=== PATIENT | male | born 1990 | race Caucasian/White ===

== ENCOUNTER 2024-03-15 09:16 | Emergency (ER) | payer SELFPAY ==
[2024-03-15 09:18] VITALS: BP 136/92
[2024-03-15 10:23] VITALS: BMI 29.0
--- NOTE | 2024-03-15 10:34 | ED.GENMED ---
History of Present Illness
General
Chief Complaint: Eye Problems
Source: patient
Exam Limitations: none
Time Seen by Provider: 03/15/24 10:14
Nursing documentation reviewed up to this point in time: agreed with
History of Present Illness
History of Present Illness:
pt is a 33 y/o M
no pmh
yesterday had some itchiness to his R eye and did rub it a few times
woke up today with pain, swleling, redness to upper eyelid
no vision changes
no fever
able to look around without pain or difficulty
says it was mroe swollen initially but now is better
nothing applied
never had a stye
no glasses or contacts
no fever
Past History
Past History
ED Past Medical History: None
ED Past Surgical History: None
Social History
Tobacco: Non-smoker
Alcohol: None
Review of Systems
Review of Systems
Allergies reviewed?: Yes
All Other Systems: Not applicable
Phy Exam
Physical Exam
Physical Exam:
GENERAL: Alert , in no apparent distress
EYE: pupils equal and reactive
Mild to moderate upper eyelid swelling on the right with erythema, there is a tiny stye within the right upper eyelid, minimal tenderness, normal EOMs, vision normal, conjunctive a clear
Left eyes clear, normal eyelids
NEUROLOGICAL: Alert and oriented, no focal neuro deficits
SKIN: Warm and dry, skin intact. Erythema right upper eyelid
MUSCULOSKELETAL: No edema, well perfused.
PSYCH: Normal and appropriate interaction.
Course
Vital Signs
Initial and Last Documented VS:
Initial Vital Signs
Temp Pulse Resp BP Pulse Ox
36.4 C 83 20 136/92 98
03/15/24 09:18 03/15/24 09:18 03/15/24 09:18 03/15/24 09:18 03/15/24 09:18
Last Documented Vital Signs
Temp Pulse Resp BP Pulse Ox
36.4 C 83 20 136/92 98
03/15/24 09:18 03/15/24 09:18 03/15/24 09:18 03/15/24 09:18 03/15/24 09:18
MDM/Problems Addressed
Differential Diagnosis Includes:
Hordeolum, blepharitis, allergic conjunctivitis, foreign body
MDM/Problems Addressed:
33-year-old healthy male with right upper eyelid swelling with mild discomfort and itchiness. Symptoms started yesterday and got worse this morning. He initially was unable to fully open his eye but now after being awake he is able to. He has no
pain with EOMs and has normal EOMs, no corrective lenses chronically, no fevers or chills or systemic symptoms. On exam he has mild right upper eyelid edema with erythema and a localized hordeolum in the mid upper eyelid with mild tenderness, there
is no conjunctivitis, no signs of orbital cellulitis. Will initiate hot compresses, erythromycin ointment and then prescribe a oral antibiotic to hold newly started the swelling or redness got worse. Patient was given strict instructions to return
for worsening pain with eye movement or any movement restriction, vision changes, fevers or chills etc.
*Critical Care Note
Total Time (30-74mins, 75-104mins- exclusive of procedures): Not Applicable
ED Attending Note
-
Portions of this chart may have been created with voice recognition software.� Occasional wrong word or��sound alike� substitutions may have occurred due to the inherent limitations of voice recognition software.
Discharge Plan
Departure
Patient Disposition: Home (Routine Discharge)
Date of Disposition: 03/15/24
Time of Disposition: 10:38
Patient with high blood pressure during this ER visit?: No
Condition: Fair
Covid-19: Not Applicable
Discharge Problem:
Hordeolum
Instructions: Stye
Prescriptions:
New
erythromycin 5 mg/gram (0.5 %) ointment
0.5 inch ophthalmic (eye) QID 7 Days Qty: 3.5 0RF
levofloxacin 500 mg tablet
500 mg PO DAILY Qty: 5 0RF
Activity Restrictions/Additional Instructions:
To treat this stye you should use hot compresses several times a day, it is good to use a teabag in steep water and apply that to your eyelid for 10 minutes off and on for several days to help it heal. You can also take ibuprofen for any pain and
swelling that you might have. Apply the erythromycin ointment 4 times a day, pulling down your lower eyelid and squeezing some ointment there and then letting it sit on your eye while moving her eye around 4 5 minutes. Then you can wait the excess
free. Do this 4 times a day for 7 days. Should you get worsening swelling or redness around your eye tomorrow you could start the antibiotic pills. However if you are feeling any restriction with movement, fevers or chills, cannot open your eye
etc. you need to return to the ER immediately. Follow-up with an eye doctor as needed
Interventions
Interventions:
*Risk Screen - Suicide Last Done: 03/15/24 09:18
*General Assessment Last Done: 03/15/24 10:23
*Neglect/Abuse Screening Last Done: 03/15/24 09:18
ED- Fall Risk Assessment Last Done: 03/15/24 10:53
*ED COVID-19 Vaccine History Last Done: 03/15/24 10:23
*Nursing Disposition Last Done: 03/15/24 10:53
Discharge Date and Time
Discharge Date/Time: 03/15/24 10:54
Print Language: GREEK
== END 2024-03-15 10:54 | disposition home or self-care (01) ==
LOC: EMR 09:16
PROVIDERS: EMERGENCY PHYSICIAN Emergency Medicine; FAMILY PHYSICIAN Family Medicine
DX: H00.011 Hordeolum externum right upper eyelid (principal); H02.841 Edema of right upper eyelid; Z88.0 Allergy status to penicillin
CPT/HCPCS: 99283